=== PATIENT | male | born 1985 | race Caucasian/White ===

== ENCOUNTER 2016-04-23 20:56 | Inpatient (IN) | payer MEDICAID ==
--- NOTE | ~2016-04-23 | HP ---
Unit #: [id number] #: [id number] Patient: MICHAEL BLANCAS [id number] [place] [address] [id number] MR#: [id number] NAME: MICHAEL BLANCAS ROOM: P186 Age: 31 Sex: M Admission Date: 04/23/2016 : 1985 Attending Physician: Riley Ambrocio M.D. Admitting Physician: Riley Ambrocio M.D. Primary Care Physician: Generic Doctor Not In System HISTORY AND PHYSICAL HISTORY OF PRESENT ILLNESS Michael is a 31 year old male admitted on 04/23/2016 for detox from alcohol. PAST MEDICAL HISTORY Morbid obesity. PAST SURGICAL HISTORY Left ankle surgical repair after a fracture. ALLERGIES None. SOCIAL HISTORY Smokes 1 pack of cigarettes daily. Drinks half gallon of vodka daily and occasional use of IV heroin with the last use several years ago. FAMILY HISTORY Noncontributory. REVIEW OF SYSTEMS CONSTITUTIONAL: No fever or chills. HEENT: Denies any sore throat, ear pain or runny nose. CARDIOVASCULAR: Denies chest pain, irregular heart rhythm or palpitations. CHEST: Denies shortness of breath or cough. No hemoptysis. GASTROINTESTINAL: Denies nausea, vomiting, diarrhea or chronic constipation. ENDOCRINE: Denies history of increased thirst or urination. No recent significant weight loss or gain. GENITOURINARY: Denies dysuria, frequency, or hematuria. SKIN: Denies any rashes. HEMATOLOGIC: Denies history of increased bleeding or bruising. MUSCULOSKELETAL: Denies any hot, swollen joints. No generalized muscle pain. NEUROLOGIC: Denies problems with vision or speech. No frequent, severe headaches. No numbness, tingling or weakness in any extremities. Denies loss of bladder or bowel control. CURRENT MEDICATIONS None. PHYSICAL EXAMINATION GENERAL: Alert, oriented, in no acute distress. Unit #: [id number] #: [id number] Patient: MICHAEL BLANCAS VITAL SIGNS: Blood pressure 158/91, heart rate 84, respirations 20. HEIGHT: 6 feet 1. WEIGHT: 270 pounds. SKIN: Warm and dry without rash or lesion. HEENT: Normocephalic. TMs not viewed. Oral and nasal passages clear. Conjunctivae clear. PERRLA. EOMs intact. NECK: Supple without lymphadenopathy or thyromegaly. HEART: Regular rate and rhythm without murmur. LUNGS: Clear. ABDOMEN: Soft, nontender, without masses or hepatosplenomegaly. : Not done. EXTREMITIES: No evidence of cyanosis, clubbing or edema. Moves all without focal deficit. NEUROLOGICAL: Grossly within normal limits. Cranial Nerves: II: Visual butler are intact. III, IV AND : Extraocular movements are intact. Pupils are equal, round and reactive to light. V: Facial sensation is grossly normal. VII: Facial movements and expression are normal. VIII: Auditory acuity grossly intact. IX, X: Uvula is midline. Phonation is normal. XI: Patient shrugs shoulders and turns head normally. XII: Tongue protrudes in the midline. Sensory and Motor Function: Sensory and motor sensation is grossly normal. Motor: moves all extremities well. Coordination: Gait is normal. Deep Tendon Reflexes: Intact. IMPRESSION 1. Psychiatric admission. 2. Morbid obesity. RECOMMENDATIONS PSYCHIATRIC: Per psychiatrist. MEDICAL: No contraindications to participate in facility's activities. MEDICAL PROGNOSIS Good. MEDICAL CONDITION Stable. Dictated by... Halima Villanueva/barby TD: 04/24/2016 17:33 JOB #: [id number] Unit #: [id number] #: [id number] Patient: MICHAEL BLANCAS HISTORY AND PHYSICAL X MEGAN MILIAN APRN X HISTORY AND PHYSICAL
--- NOTE | ~2016-04-23 | DS ---
Unit #: [id number] #: [id number] Patient: [facility] [id number] [facility] [address] [place] [address] [id number] MR#: [id number] NAME: MICHAEL UMAÑA ROOM: 86 Age: 31 Sex: M Admission Date: 04/23/2016 : 1985 Discharge Date: 04/28/2016 Attending Physician: Riley Ambrocio M.D. Primary Care Physician: Generic Doctor Not In System DISCHARGE SUMMARY IDENTIFYING DATA Mr. Umaña is a 31-year-old white male, who is a resident of [place], [place] and was transferred to from [facility]. DISCHARGE DIAGNOSES Psychiatric: Alcohol dependence, moderate and acute withdrawals; alcohol-induced mood disorder. Medical: None. Stressors: Moderate psychosocial stressors. HISTORY OF PRESENT ILLNESS Please see initial psychiatric evaluation for details. PAST PSYCHIATRIC HISTORY Please see initial psychiatric evaluation for details. PAST MEDICAL HISTORY Please see initial psychiatric evaluation for details. HOSPITAL COURSE The patient was admitted to the adult psychiatric and chemical dependency unit at [facility] and was oriented to the hospital environment. Routine p.r.n. medications were initiated, and he was started back on his home medications and alcohol detox protocol was initiated and he was closely monitored. He was taking medications regularly and was tolerating them fairly well and was able to show a decent and therapeutic response and was willing to continue treatment on an outpatient basis and as such, it was decided that he will be discharged home and will continue treatment. DISCHARGE MEDICATIONS None. DISCHARGE CONDITION Stable. PROGNOSIS Fair. Dictated by... Emerita Grullon/curt Unit #: [id number] #: [id number] Patient: MICHAEL UMAÑA TD: 04/28/2016 06:37 JOB #: [id number] DISCHARGE SUMMARY X Riley Ambrocio MD X DISCHARGE SUMMARY
--- NOTE | ~2016-04-23 | PN ---
Unit #: [id number] #: [id number] Patient: MICHAEL BLANCAS [id number] [facility] [address] [place] [address] [id number] MR#: [id number] NAME: MICHAEL BLANCAS ROOM: 86 Age: 31 Sex: M Admission Date: 04/23/2016 : 1985 Attending Physician: Riley Ambrocio M.D. Admitting Physician: Riley Ambrocio M.D. Primary Care Physician: Generic Doctor Not In System [facility] PROGRESS NOTES DATE OF SERVICE 04/27/2016 DISCUSSION Mr. Harris is a 31-year-old white male who was seen today. Chart was reviewed and case was discussed with the staff. He has been anxious, withdrawn, and rather seclusive to himself. Meanwhile, he has been cooperative with the treatment recommendations and appears to be coming out of the detox without any complications. MENTAL STATUS EXAMINATION Young white male who is casually dressed with fair personal hygiene, appears to be in no acute distress or discomfort. He was awake and alert on interaction with intact orientation. His mood is anxious with a congruent affect. He denies any suicidal or homicidal ideations. His insight and judgment remain slightly impaired. TREATMENT PLAN 1. We will continue him on his current medications and treatment protocol. We will monitor his response to the medications and make further adjustments as needed. 2. We will continue to follow up. Dictated by... Emerita Grullon/corneliag TD: 04/28/2016 11:12 JOB #: [id number] [facility] PROGRESS NOTES X Riley Ambrocio MD PROGRESS NOTE
--- NOTE | ~2016-04-23 | PA ---
Unit #: [id number] #: [id number] Patient: MICHAEL BLANCAS [id number] [facility] [address] [place] [address] [id number] I MR#: [id number] NAME: MICHAEL BLANCAS ROOM: P186 Age: 31 Sex: M Admission Date: 04/23/2016 : 1985 Date of Assessment: Attending Physician: Riley Ambrocio M.D. Admitting Physician: Riley Ambrocio M.D. Primary Care Physician: Generic Doctor Not In System PSYCHIATRIC ASSESSMENT DATE OF SERVICE 04/24/2016. IDENTIFYING DATA Mr. Harris is a 31-year-old white male, who is a resident of [place], [place], and was transferred to us from [facility]. CHIEF COMPLAINT "I have been drinking half a gallon of vodka a day." HISTORY OF PRESENT ILLNESS Mr. Harris is a 31-year-old white male, who was transferred to us from [facility] in [place], [place], where he presented to the emergency room with alcohol-related problems and stated that he has been drinking daily and has been drinking half a gallon of vodka a day and that he has seizures when alcohol gets too low and his last known seizure was couple of weeks ago and he reports alcohol use is affecting all areas of his life including his work performance and problems in his relationship and mood instability and an increase in medical problems and he has not had any periods of sobriety over the past year and he reports being very depressed and was seen to be tearful and expressing feelings of hopelessness and helplessness, though he denies any suicidal ideations, intent, or plan. He reports that he has started drinking earlier in the day and that started bothering him, so then he decided to start buying two pints of vodka a day as he stated that "when the alcohol gets low in his system, he starts having shakes and tremors," so he was trying to spread it out, but he knew that every time he goes a little bit longer without alcohol he starts having seizures and therefore he decided that he needed to get some medical attention and care. SUBSTANCE ABUSE HISTORY The patient has a history of alcohol and opioid abuse, and currently, alcohol has been his drug of choice as he has been drinking half a gallon of vodka a day. PAST PSYCHIATRIC HISTORY The patient has had a history of inpatient chemical dependency treatment at the [facility] in [place], and currently, he is not active in any treatment program, is not seeing a psychiatrist, and is not taking any psychotropic medications. PAST MEDICAL HISTORY Unit #: [id number] #: [id number] Patient: MICHAEL BLANCAS Significant for seizure disorder and obesity. ALLERGIES No known medication allergies. PERSONAL AND SOCIAL HISTORY A 31-year-old white male, who reports that he is single and employed and lives at home by himself and has fairly decent social support system. MENTAL STATUS EXAMINATION Young white male, who was casually dressed with a fair personal hygiene, appears to be in no acute distress or discomfort. He was awake and alert on interaction with intact orientation to time, place, and person. His mood was anxious and depressed with a congruent affect. His speech was slow and goal directed. He denies any suicidal or homicidal ideations and also denies any auditory or visual hallucinations. His insight and judgment remain significantly impaired. DIAGNOSTIC IMPRESSION Psychiatric: Alcohol dependence, moderate, in acute withdrawals and alcohol-induced mood disorder. Medical: None. Stressors: Moderate psychosocial stressors. TREATMENT PLAN 1. The patient has presented with a history of substance abuse and mood disorder and has been decompensating and will need inpatient hospitalization for detoxification, safety, and stabilization. We will start him back on detox protocol. We will closely monitor for any worsening withdrawal symptoms. 2. Supportive therapy was provided to the patient. 3. Safe, structured, and nourishing environment will be provided. ESTIMATED LENGTH OF STAY 4 to 5 days. ABILITY TO HELP SELF Limited. WILLINGNESS TO HELP SELF The patient appears to be willing to help self. STRENGTHS 1. Communicative. 2. Cooperative. PROBLEMS 1. Chronic dysphoric symptoms. 2. Chronic chemical dependency. 3. Poor social support system. DISCHARGE CRITERIA This will be contingent upon the patient's ability to go through detox without having any significant withdrawal symptoms as well as his ability to stay safe to himself, particularly after discharge from the hospital. Dictated by... Unit #: [id number] #: [id number] Patient: MICHAEL BLANCAS Emerita Grullon/curt TD: 04/24/2016 11:08 JOB #: [id number] PSYCHIATRIC ASSESSMENT X Riley Ambrocio MD PSYCHIATRIC ASSESSMENT
--- NOTE | ~2016-04-23 | PN ---
Unit #: [id number] #: [id number] Patient: MICHAEL UMAÑA [id number] [facility] [address] [place] [address] [id number] I MR#: [id number] NAME: MICHAEL UMAÑA ROOM: 86 Age: 31 Sex: M Admission Date: 04/23/2016 : 1985 Attending Physician: Riley Ambrocio M.D. Admitting Physician: Riley Ambrocio M.D. Primary Care Physician: Renuka Doctor Not In System [facility] PROGRESS NOTES DATE 04/25/2016 DISCUSSION Mr. Umaña is a 31-year-old, white male who was seen today and chart was reviewed and case was discussed with the staff. He has been anxious, withdrawn though has not shown any agitation, irritability or behavioral problems and has been cooperative with treatment recommendations. MENTAL STATUS EXAM Young white male who was casually dressed with fair personal hygiene, appears to be in no acute distress or discomfort. He was awake and alert on interaction with intact orientation. His mood was anxious with congruent affect. He denies any suicidal or homicidal ideation. His insight and judgement remains slightly impaired. TREATMENT PLAN 1. We will continue him on his current medications and treatment protocol. We will monitor his response to the medication and make further adjustments as needed. 2. We will continue to follow up. Dictated by... Emerita Grullon/maribel TD: 04/27/2016 02:56 JOB #: [id number] Unit #: [id number] #: [id number] Patient: MICHAEL UMAÑA PROGRESS NOTES X Riley Ambrocio MD X PROGRESS NOTE
--- NOTE | ~2016-04-23 | PN ---
Unit #: [id number] #: [id number] Patient: MICHAEL UMAÑA [id number] [facility] [address] [place] [address] [id number] MR#: [id number] NAME: MICHAEL UMAÑA ROOM: P186 Age: 31 Sex: M Admission Date: 04/23/2016 : 1985 Attending Physician: Riley Ambrocio M.D. Admitting Physician: Riley Ambrocio M.D. Primary Care Physician: Generic Doctor Not In System [facility] PROGRESS NOTES DATE OF SERVICE: 04/26/2016 SUBJECTIVE Mr. Umaña is a 31-year-old white male with substance abuse and mood disorder, who was seen today and chart was reviewed, and case was discussed with the staff. He has been anxious, withdrawn, and seclusive to himself, and has been in some distress and discomfort. Meanwhile, he has been taking medications and tolerating them fairly well with no reported side effects. MENTAL STATUS EXAMINATION Young white male who was casually dressed with fair personal hygiene, appears to be in slight distress or discomfort. He was awake and alert on interaction with intact orientation. His mood was anxious with a congruent affect. His speech was slow and goal directed. He denies any suicidal or homicidal ideations. His insight and judgment remain slightly impaired. TREATMENT PLAN 1. We will continue him on his current treatment protocol. We will monitor his response to medications and make further adjustments as needed. 2. We will continue to follow up. Dictated by... Emerita Grullon/curt TD: 04/27/2016 05:21 JOB #: [id number] [facility] PROGRESS NOTES X Riley Ambrocio MD PROGRESS NOTE
[2016-04-24 10:22] LABS: BASOPHIL% 0.3 % (0-2.5); EOSINOPHIL% 1.1 % (0.0-7.0); HEMOGLOBIN 14.6 gm/dL (13.0-16.0); LYMPHOCYTE# 0.6 X10e3 (1.0-3.5); LYMPHOCYTE% 19.4 % (17.0-45.0); MEAN CELL VOLUME 109.1 FL (83-96); MEAN PLATELET VOLUME 8.6 FL (6.5-11.5); MONOCYTE# 0.3 X10e3 (0-1.0); MONOCYTE% 9.9 % (3.0-12.0); NEUTROPHIL# 2.3 X10e3 (1.5-7.1); NEUTROPHIL% 69.3 % (40-75); PLATELET COUNT 125 X10e3 (140-420); RED BLOOD COUNT 3.94 X10e (3.90-5.60); WHITE BLOOD COUNT 3.3 X10e3 (4.0-10.5)
[2016-04-24 10:23] LABS: DIFF IND NO
[2016-04-24 11:06] LABS: THYROID STIMULATING HORMONE 5.24 uIU/ml (0.34-5.60)
[2016-04-24 11:12] LABS: ALBUMIN SERUM 3.7 g/dL (3.5-5.0); ALKALINE PHOSPHATASE 67 U/L (32-92); ALT (SGPT) 90 U/L (10-40); AST (SGOT) 71 U/L (10-42); BLOOD UREA NITROGEN 6 mg/dL (9-23); BUN/CREATININE RATIO 8.57; CALCIUM SERUM 8.8 mg/dL (8.4-10.2); CARBON DIOXIDE 26 mmol/L (22-31); CHLORIDE 104 mmol/L (100-111); CREATININE SERUM 0.7 mg/dL (0.6-1.4); GLOM FILT RATE Estimated ABOVE60 mL/min (>60); GLUCOSE FASTING 62 mg/dL (70-110); POTASSIUM 3.6 mmol/L (3.5-5.1); PROTEIN TOTAL SERUM 6.5 g/dL (6.0-8.3); SODIUM 139 mmol/L (135-145)
[2016-04-24 11:13] LABS: FREE THYROXIN (T4) 0.84 ng/dL (0.58-1.64)
[2016-04-24 12:37] LABS: URINE APPEARANCE CLEAR; URINE BILIRUBIN NEG (NEG); URINE BLOOD NEG (NEG); URINE COLOR YELLOW; URINE GLUCOSE NEG (NEG); URINE KETONE 1+ (NEG); URINE LEUKOCYTE ESTERASE NEG (NEG); URINE NITRATE NEG (NEG); URINE PH 7.5 (5-8); URINE PROTEIN NEG (NEG); URINE SPECIFIC GRAVITY 1.004 (1.003-1.035); URINE UROBILINOGEN 0.2 MG/DL (NEG)
[2016-04-24 12:47] LABS: AMPHETAMINE NEG (NEG); BARBITURATES NEG (NEG); BENZODIAZEPINES NEG (NEG); COCAINE NEG (NEG); MARIJUANA NEG (NEG); OPIATES NEG (NEG); TRICYCLIC ANTIDEPRESSANTS NEG (NEG); U METHADONE NEG (NEG)
== END 2016-04-28 10:00 | disposition home or self-care (01) | DRG 897 ==
LOC: P1E 20:56
PROVIDERS: Psychiatry & Neurology Psychiatry
PROC: HZ2ZZZZ Detoxification Services for Substance Abuse Treatment (ICD-10-PCS; principal; 2016-04-23)
DX: F10.239 Alcohol dependence with withdrawal, unspecified (principal); E66.01 Morbid (severe) obesity due to excess calories; F10.24 Alcohol dependence with alcohol-induced mood disorder; F17.210 Nicotine dependence, cigarettes, uncomplicated; Z68.35 Body mass index [BMI] 35.0-35.9, adult
CPT/HCPCS: 80053; 80307; 81003; 84439; 84443; 85025; 86592